=== PATIENT | female | born 2000 | race Caucasian/White ===

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

== ENCOUNTER 2018-06-12 08:21 | Day surgery (SDC) | payer MEDICAID ==
[2018-06-12] MEDS ORDERED: Dextrose 5%-Lactated Ringers 1,000 ML IV SCH (08:30)
[2018-06-12] MEDS ORDERED: fentaNYL 100 MCG/2 ML SDV ONE (08:43)
[2018-06-12] MEDS ORDERED: Midazolam 1 MG/ML 2 ML SDV ONE (08:43)
[2018-06-12] MEDS ORDERED: Propofol 200 MG/20 ML SDV ONE (08:44)
[2018-06-12] MEDS ORDERED: Glycopyrrolate 0.2 MG/ML 2 ML SDV IVPUSH ONE (09:15)
[2018-06-12 11:11] VITALS: BP 112/70
--- NOTE | 2018-06-15 12:32 | OR ---
DATE OF PROCEDURE: 06/12/2018 PREOPERATIVE DIAGNOSIS: Probable gastroesophageal reflux disease. POSTOPERATIVE DIAGNOSIS: Gastroesophageal reflux disease associated with small hiatal hernia, but wide-open esophagogastric junction. OPERATIVE PROCEDURES: Esophagogastroduodenoscopy with, 1. Biopsy of esophagogastric junction for histologic evaluation. 2. Biopsies of antrum for CLOtest. ANESTHESIA: IV sedation. INDICATIONS FOR PROCEDURE: This is a 18-year-old presenting with worsening problems with heartburn and occasional bilious aspiration. She does have some dysphagia referable to laryngopharyngeal area, but no dysphasia more distally within the esophagus by history. The patient is presently on omeprazole 20 mg a day. She has noted some improvement of her symptoms when she was started on omeprazole. The plan is to proceed with upper GI endoscopy with biopsies and/or dilation as indicated. Potential risks including bleeding and perforation were discussed, and the patient wishes to proceed. DETAILS OF PROCEDURE: The patient was taken to the operating room and placed in a left lateral decubitus position. IV sedation was administered, after which the upper GI endoscope was passed orally through the length of the esophagus, into the stomach with retroflexion view of the fundus, thereafter through the pyloric channel, and into the junction of the third and fourth portions of the duodenum. Findings included some slight redness in the hypopharynx and larynx consistent with probable ongoing reflux. The upper esophageal sphincter and esophageal body were otherwise unremarkable. The patient had a small hiatal hernia with the scope within the distal esophagus. The patient had essentially a wide-open esophagogastric junction, i.e., if there is loss of any angulation at that level, which would allow more or less free reflux of the gastric contents into the esophagus. This was associated with some moderate edema and friability of the distal esophageal mucosa. There was no obvious upward extension of the gastroesophageal junction and mucosal line above the upper gastric folds. The remainder of the stomach and duodenal areas were unremarkable. At this point, biopsies were obtained from the antrum to establish the patient's H. pylori status. Multiple biopsies were then obtained from the esophagogastric junction and sent for histologic evaluation. Minimal bleeding from the biopsy site was seen, and the procedure then concluded. At this point, we will switch the patient over from omeprazole to Protonix 40 mg a day. We will see the patient back on 06/24/2018 to see how we are doing in terms of symptoms. Of note, the patient's mother had a Trixie fundoplication done by myself many years ago with long-term good results, and this is probably someone who would likewise benefit from an antireflux procedure to avoid long-term medication use as well as potential complications related to the gastroesophageal reflux disease. We will see the patient back on 06/24/2018. Robert Garcia MD /[id number]
== END 2018-06-12 11:10 | disposition home or self-care (01) ==
LOC: JP.SDS 08:21
PROVIDERS: ATTEND Surgery
DX: K21.9 Gastro-esophageal reflux disease without esophagitis (principal); K44.9 Diaphragmatic hernia without obstruction or gangrene; F41.9 Anxiety disorder, unspecified; F32.9 Major depressive disorder, single episode, unspecified
CPT/HCPCS: 43239; 81025; 87081; J2250; J2704; J3010; J3490; J7042; 88305

== ENCOUNTER 2018-12-16 22:59 | Emergency (ER) | payer MEDICAID ==
[2018-12-16 23:12] VITALS: BP 112/59; PULSE 70
--- NOTE | 2018-12-16 23:38 | EDM.PDOC ---
ED HPI GENERAL MEDICAL PROBLEM - General Chief Complaint: Respiratory Problem Stated Complaint: SOB Time Seen by Provider: 12/16/18 23:44 Source of Information: Reports: Patient - History of Present Illness INITIAL COMMENTS - FREE TEXT/NARRATIVE: 18 years old female patient presented with a chief complaint of sore throat, runny nose and congestion, sinus pressure and postnasal drip. Also mild dry cough. Fever of 10 1 that has resolved. Mild dry cough. [place] any sick contacts. No recent travel. Denies any chest pain shortness breath. Denies any skin rash. Denies any abdominal pain diarrhea or constipation. Denies any urinary symptom. - Related Data Allergies Allergy/AdvReac Type Severity Reaction Status Date / Time No Known Allergies Allergy Verified 06/12/18 08:44 Home Meds: Home Meds Amitriptyline [Elavil] 25 mg PO BEDTIME 09/08/14 [History] FLUoxetine [PROzac] 40 mg PO DAILY 09/08/14 [History] SUMAtriptan [Imitrex] 25 mg PO ASDIRECTED PRN 09/08/14 [History] Ibuprofen [Motrin] 200 mg PO Q6H PRN 09/11/14 [History] Acetaminophen [Tylenol] 650 mg PO Q6H PRN 06/10/18 [History] Cetirizine HCl [Zyrtec] 10 mg PO DAILY 06/10/18 [History] Omeprazole 20 mg PO DAILY 06/10/18 [History] Pseudoephedrine HCl [Sudafed] 30 mg PO ASDIRECTED 06/10/18 [History] Norelgestromin/Ethin.Estradiol [Xulane Patch] 1 patch TRDERM WEEKLY 06/12/18 [ History] Past Medical History - Past Health History Medical/Surgical History: Denies Medical/Surgical History HEENT History: Reports: Allergic Rhinitis, Impaired Vision Gastrointestinal History: Reports: GERD Musculoskeletal History: Reports: Fracture Neurological History: Reports: Concussion, Migraines Psychiatric History: Reports: Anxiety - Past Surgical History HEENT Surgical History: Reports: Adenoidectomy, Myringotomy w Tube(s), Naso- Sinus Surgery Neurological Surgical History: Reports: None Musculoskeletal Surgical History: Reports: None Social & Family History - Tobacco Use Smoking Status *Q: Never Smoker - Caffeine Use Caffeine Use: Reports: Coffee - Recreational Drug Use Recreational Drug Use: No ED ROS GENERAL - Review of Systems Review Of Systems: ROS reveals no pertinent complaints other than HPI. ED EXAM, GENERAL - Physical Exam Exam: See Below Exam Limited By: No Limitations General Appearance: Alert, WD/WN, No Apparent Distress Ears: Normal External Exam, Normal Canal, Hearing Grossly Normal, Normal TMs Nose: Nasal Drainage, Clear Rhinorrhea Throat/Mouth: Other (Posterior pharyngeal wall erythema. No exudates) Head: Atraumatic, Normocephalic Neck: Normal Inspection, Supple, Non-Tender, Full Range of Motion. No: Lymphadenopathy (R) Respiratory/Chest: No Respiratory Distress, Lungs Clear, Normal Breath Sounds, No Accessory Muscle Use, Chest Non-Tender Cardiovascular: Normal Peripheral Pulses, Regular Rate, Rhythm, No Edema, No Gallop, No JVD, No Murmur, No Rub GI/Abdominal: Normal Bowel Sounds, Soft, Non-Tender, No Organomegaly, No Distention, No Abnormal Bruit, No Mass Back Exam: Normal Inspection, Full Range of Motion, NT Extremities: Normal Inspection, Normal Range of Motion, Non-Tender, Normal Capillary Refill, No Pedal Edema Neurological: Alert, Oriented, CN II-XII Intact, Normal Cognition, Normal Gait, Normal Reflexes, No Motor/Sensory Deficits Psychiatric: Normal Affect, Normal Mood Skin Exam: Warm, Dry, Intact, Normal Color, No Rash Course - Vital Signs Last Recorded V/S: Last Vital Signs Temp 35.3 C 12/16/18 23:11 Pulse 70 12/16/18 23:11 Resp 16 12/16/18 23:11 BP 112/59 L 12/16/18 23:11 Pulse Ox 97 12/16/18 23:11 - Orders/Labs/Meds Orders: Active Orders 24 hr Category Date Time Status Chest 2V [CR] Stat Exams 12/16/18 23:26 Taken - Radiology Interpretation Free Text/Narrative:: Patient was seen and examined shortly after arrival. Stable. X-ray of the chest shows no acute cardiopulmonary process. This is most likely viral upper respiratory infection that has been going on for over 10 days. Possible bacterial components, pharyngitis, sinusitis and bronchitis. I will start her on azithromycin. Advised to rest and stay well-hydrated, alternate Tylenol and ibuprofen as needed. Close follow-up with PCP. Come back if symptom worsen. Patient agrees with the plan. Stable for discharge. Departure - Departure Time of Disposition: :49 Disposition: Home, Self-Care 01 Condition: Good Clinical Impression: Upper respiratory infection, acute, Sinusitis, Bronchitis - Discharge Information *PRESCRIPTION DRUG MONITORING PROGRAM REVIEWED*: Not Applicable *COPY OF PRESCRIPTION DRUG MONITORING REPORT IN PATIENT ANNY: Not Applicable Instructions: Sinusitis, Adult, [id number], Upper Respiratory Infection, Adult, [id number], Viral Respiratory Infection, [id number], Acute Bronchitis , Adult, [id number] Referrals: Jc Stephens MD [Primary Care Provider] - Forms: ED Department Discharge Additional Instructions: Advised to rest and stay well-hydrated, alternate Tylenol and ibuprofen as needed. Close follow-up with PCP. Come back if symptom worsen. - My Orders Last 24 Hours: My Active Orders 12/16/18 23:26 Chest 2V [CR] Stat - Assessment/Plan Last 24 Hours: My Active Orders 12/16/18 23:26 Chest 2V [CR] Stat Plan: Advised to rest and stay well-hydrated, alternate Tylenol and ibuprofen as needed. Close follow-up with PCP. Come back if symptom worsen.
--- NOTE | 2018-12-16 23:51 | CRLCR ---
INDICATION: COUGH TECHNIQUE: Chest 2 views. COMPARISON: None. FINDINGS: Cardiovascular and mediastinum: Heart size and vasculature are normal in caliber and appearance. Mediastinum is within normal limits. Lungs and pleural spaces: Lungs are clear. No sign of infiltrate or mass. No sign of pleural effusion. No pneumothorax. Bones and soft tissues: No significant findings. IMPRESSION: Unremarkable chest. Dictated by: Blade Rosenberg MD @ 12/16/2018 23:49:06 (Electronically Signed)
== END 2018-12-17 00:06 | disposition home or self-care (01) ==
LOC: JP.ED 22:59
DX: J01.90 Acute sinusitis, unspecified (principal); J40 Bronchitis, not specified as acute or chronic; J06.9 Acute upper respiratory infection, unspecified; F41.9 Anxiety disorder, unspecified; K21.9 Gastro-esophageal reflux disease without esophagitis; Z79.899 Other long term (current) drug therapy; Z79.1 Long term (current) use of non-steroidal anti-inflammatories (NSAID); Z79.891 Long term (current) use of opiate analgesic
CPT/HCPCS: 71046; 99284-25